=== PATIENT | female | born 1955 | race Two or more races ===

== ENCOUNTER 2017-04-16 12:58 | Emergency (ER) | payer MEDICAID ==
[~2017-04-16] VITALS: Ht 149.9 cm; Wt 61.8 kg
[2017-04-16] MEDS ORDERED: ASPIRIN 81 MG TABLET CHEW PO ONE (14:00)
[2017-04-16] MEDS ORDERED: SODIUM CHLORIDE FLUSH 10ML SYR IVF ONE (14:00)
[2017-04-16 14:06] LABS: ASPARTATE AMINO TRANSFERASE 22 U/L (15-37); BLOOD UREA NITROGEN 16 mg/dL (7-18)
[2017-04-16 14:13] LABS: IS PT STATUS REG ER OR PRE ER? YES
[2017-04-16] MEDS ORDERED: CEFTRIAXONE 1,000 MG IM ONE (15:30)
[2017-04-16 16:52] VITALS: BP 136/77
[2017-04-16] MEDS ORDERED: CEFTRIAXONE 1,000 MG ONE (16:58)
[2017-04-16] MEDS ORDERED: ASPIRIN 81 MG TABLET CHEW ONE ×2 (16:58→17:13)
== END 2017-04-16 17:25 | disposition home or self-care (01) ==
LOC: ED 17:19
DX: R10.13 Epigastric pain (principal); J15.9 Unspecified bacterial pneumonia; I10 Essential (primary) hypertension; E03.9 Hypothyroidism, unspecified
CPT/HCPCS: 36415; 71010; 80053; 81001; 83690; 84484; 85025; 87086; 93005; 96372; 99285; J0696

== ENCOUNTER 2019-09-22 19:00 | Emergency (ER) | payer MEDICAID ==
[~2019-09-22] VITALS: Ht 154.9 cm; Wt 65.8 kg
[2019-09-22] MEDS ORDERED: MAALOX/HYOSCYAMINE/LIDOCAINE 45 ML BTL ONE (19:29)
[2019-09-22] MEDS ORDERED: FAMOTIDINE 20 MG TABLET ONE (19:29)
[2019-09-22] MEDS ORDERED: FAMOTIDINE 20 MG TABLET PO ONE (19:30)
[2019-09-22] MEDS ORDERED: MAALOX/HYOSCYAMINE/LIDOCAINE 45 ML BTL PO ONE (19:30)
[2019-09-22 20:00] LABS: BASOPHILS # (AUTO) 0.04 x10^3/uL (0-0.1); BASOPHILS % (AUTO) 1 % (0-1); EOSINOPHILS # (AUTO) 0.15 x10^3/uL (0-0.4); EOSINOPHILS % (AUTO) 2 % (1-7); LYMPHOCYTES # (AUTO) 3.38 x10^3/uL (1-3.4); LYMPHOCYTES % (AUTO) 46 % (22-44); MD NO; MEAN CORPUSCULAR HEMOGLOBIN 32.3 pg (27.0-34.8); MEAN CORPUSCULAR HGB CONC 34.4 g/dL (32.4-35.8); MEAN CORPUSCULAR VOLUME 93.8 fL (80-100); MEAN PLATELET VOLUME 9.6 fL (7.4-10.4); MONOCYTES # (AUTO) 0.63 x10^3/uL (0.2-0.8); MONOCYTES % (AUTO) 9 % (2-9); NEUTROPHILS # (AUTO) 3.19 x10^3/uL (1.8-6.8); NEUTROPHILS % (AUTO) 43 % (42-75); PLATELET COUNT 186 x10^3/uL (130-400); RED BLOOD COUNT 4.48 x10^6/uL (3.82-5.3); RED CELL DISTRIBUTION WIDTH 13.2 % (9.6-15.2)
[2019-09-22 20:13] LABS: ALANINE AMINOTRANSFERASE 22 U/L (12-78); ALBUMIN 3.8 g/dL (3.4-5.0); ANION GAP 6 mmol/L (5-15); CALCIUM 8.8 mg/dL (8.5-10.1); CHLORIDE 110 mmol/L (98-107)
--- NOTE | 2019-09-22 20:16 | NUR ---
U/S COMPLETE. DENIES ANY RELIEF FROM RXS.
[2019-09-22 20:17] LABS: ALKALINE PHOSPHATASE 122 U/L (45-117); BILIRUBIN,TOTAL 0.3 mg/dL (0.2-1.0); TOTAL PROTEIN 7.9 g/dL (6.4-8.2); TROPONIN I < 0.015 ng/mL (0.000-0.045)
[2019-09-22 20:38] VITALS: BP 158/78
== END 2019-09-22 21:10 | disposition home or self-care (01) ==
LOC: ED 20:19
DX: K21.0 Gastro-esophageal reflux disease with esophagitis (principal); R07.89 Other chest pain; I10 Essential (primary) hypertension; E78.00 Pure hypercholesterolemia, unspecified; E03.9 Hypothyroidism, unspecified; J45.909 Unspecified asthma, uncomplicated
CPT/HCPCS: 36415; 71045; 76700; 80053; 83690; 84484; 85025; 93005; 99284